=== PATIENT | male | born 1935 | race Caucasian/White ===

== ENCOUNTER → 2019-07-22 | Outpatient (CLI) | payer MEDICARE, OTHER ==
[~2019-07-22] MED LIST: BIFI4CAP PO; CILO100T PO; DOXY100T21 PO; FLAX100020 PO; FURO40TA5 PO; GARL10005 PO; MAGN100T5 PO; MELA5CAP PO; PLETAL PO; RAMI2.5C16 PO; ROSU10TA22 PO; SOTA80TA PO; TEMA30CA PO; THYR30TA PO; VITA100049 PO; [UNRECOGNIZED DRUG - CODE] PO; [UNRECOGNIZED DRUG - CODE] PO
--- NOTE | 2019-07-22 13:26 | NUR ---
MBSS COMPLETED. NON-TRANSIENT PENETRATION WITH THIN LIQUIDS (SILENT). RECOMMEND REGULAR, NECTAR-THICK LIQUIDS; PILLS WHOLE WITH LIQUIDS. RECOMMENDATIONS: 1.SKILLED SPEECH THERAPY 2-3XWK TARGETING DYSPHAGIA. *PLEASE CONSIDER NMES (NEUROMUSCULAR ELECTRICAL STIMULATION) IN TREATMENT PLAN. RECOMMENDATIONS PROVIDED VIA WRITTEN MODALITY. BACK WEDGER EXPLAINED HOW TO REACH NECTAR-THICK LIQUIDS. ALL QUESTIONS ANSWERED AT THIS TIME. Addendum: 07/22/19 at 1327 by HELLEN ALLRED, [facility] Amended: Links added.
== END | disposition home or self-care (01) ==
LOC: RAH 10:37
PROVIDERS: ATTEND Internal Medicine
DX: Z09 Encounter for follow-up examination after completed treatment for conditions other than malignant neoplasm (principal); R13.13 Dysphagia, pharyngeal phase; I10 Essential (primary) hypertension; E78.5 Hyperlipidemia, unspecified; E03.9 Hypothyroidism, unspecified; I25.10 Atherosclerotic heart disease of native coronary artery without angina pectoris; R63.4 Abnormal weight loss; R19.7 Diarrhea, unspecified; R14.3 Flatulence; Z90.09 Acquired absence of other part of head and neck; Z95.2 Presence of prosthetic heart valve; Z95.0 Presence of cardiac pacemaker
CPT/HCPCS: 74230; 92611

== ENCOUNTER 2019-08-05 05:39 | Day surgery (SDC) | payer MEDICARE, OTHER ==
[~2019-08-05] VITALS: Ht 172.7 cm; Wt 63.5 kg
[2019-08-05] VITALS (12 sets, daily range): BP systolic 92–150; BP diastolic 51–67
[~2019-08-05 05:39] MED LIST changes: -BIFI4CAP PO; -CILO100T PO; -DOXY100T21 PO; -FLAX100020 PO; -FURO40TA5 PO; -GARL10005 PO; -MAGN100T5 PO; -MELA5CAP PO; -PLETAL PO; -RAMI2.5C16 PO; -ROSU10TA22 PO; +SODIUM CHLORIDE 0.9% 1000ML 1,000 ML IV ONE; -SOTA80TA PO; -TEMA30CA PO; -THYR30TA PO; -VITA100049 PO; -[UNRECOGNIZED DRUG - CODE] PO; -[UNRECOGNIZED DRUG - CODE] PO
[2019-08-05] MEDS ORDERED: BOTULINUM TOXIN TYPE A 100 UNITS/VIAL INJ SCH (06:30)
[2019-08-05] MEDS ORDERED: FURO40TA5 PO ×2 (06:48)
[2019-08-05] MEDS ORDERED: MELA5CAP PO ×2 (06:48)
[2019-08-05] MEDS ORDERED: DOXY100T21 PO ×2 (06:48)
[2019-08-05] MEDS ORDERED: CILO100T PO ×2 (06:48)
[2019-08-05] MEDS ORDERED: THYR30TA PO ×2 (06:48)
[2019-08-05] MEDS ORDERED: [UNRECOGNIZED DRUG - CODE] PO ×2 (06:48)
[2019-08-05] MEDS ORDERED: RAMI2.5C16 PO ×2 (06:48)
[2019-08-05] MEDS ORDERED: [UNRECOGNIZED DRUG - CODE] PO ×2 (06:48)
[2019-08-05] MEDS ORDERED: PLETAL PO ×2 (06:48)
[2019-08-05] MEDS ORDERED: MAGN100T5 PO ×2 (06:48)
[2019-08-05] MEDS ORDERED: SOTA80TA PO ×2 (06:48)
[2019-08-05] MEDS ORDERED: GARL10005 PO ×2 (06:48)
[2019-08-05] MEDS ORDERED: ROSU10TA22 PO ×2 (06:48)
[2019-08-05] MEDS ORDERED: TEMA30CA PO ×2 (06:48)
[2019-08-05] MEDS ORDERED: FLAX100020 PO ×2 (06:48)
[2019-08-05] MEDS ORDERED: VITA100049 PO ×2 (06:48)
[2019-08-05] MEDS ORDERED: BIFI4CAP PO ×2 (06:49)
[2019-08-05] MEDS ORDERED: PROPOFOL 10 MG/ML 20ML VIAL IV ONE (06:58)
== END 2019-08-05 08:30 | disposition home or self-care (01) ==
LOC: ENDO 05:39 → DAH 05:39 → ENDO 08:30
PROVIDERS: ATTEND Internal Medicine
DX: R13.10 Dysphagia, unspecified (principal); K22.8 Other specified diseases of esophagus; K44.9 Diaphragmatic hernia without obstruction or gangrene; K29.50 Unspecified chronic gastritis without bleeding; E78.5 Hyperlipidemia, unspecified; E03.9 Hypothyroidism, unspecified; M19.90 Unspecified osteoarthritis, unspecified site; I25.10 Atherosclerotic heart disease of native coronary artery without angina pectoris; Z95.0 Presence of cardiac pacemaker; Z98.890 Other specified postprocedural states; Z79.899 Other long term (current) drug therapy; Z98.49 Cataract extraction status, unspecified eye; Z87.891 Personal history of nicotine dependence; Z82.49 Family history of ischemic heart disease and other diseases of the circulatory system; Z82.3 Family history of stroke
CPT/HCPCS: 43236; 43239; 43248; 88305; A4215; A4221; A4222; A4223; A4606; A4615; A4663; J0585; J2704; J7030

== ENCOUNTER 2019-11-01 09:31 | Emergency (ER) | payer MEDICARE, OTHER ==
[~2019-11-01 09:31] MED LIST changes: +BIFI4CAP PO; +CILO100T PO; +DOXY100T21 PO; +FLAX100020 PO; +FURO40TA5 PO; +GARL10005 PO; +MAGN100T5 PO; +MELA5CAP PO; +PLETAL PO; +RAMI2.5C16 PO; +ROSU10TA22 PO; -SODIUM CHLORIDE 0.9% 1000ML 1,000 ML IV ONE; +SOTA80TA PO; +TEMA30CA PO; +THYR30TA PO; +VITA100049 PO; +[UNRECOGNIZED DRUG - CODE] PO; +[UNRECOGNIZED DRUG - CODE] PO
[2019-11-01] MEDS ORDERED: TRAMADOL HCL 50 MG TABLET ONE (10:33)
[2019-11-01] MEDS ORDERED: TETANUS/DIPHTHERIA TOXOID [ADULT] 0.5 ML VIAL IM ONE (10:34)
== END 2019-11-01 12:18 | disposition home or self-care (01) ==
LOC: EDH 09:31
DX: S93.402A Sprain of unspecified ligament of left ankle, initial encounter (principal); S80.211A Abrasion, right knee, initial encounter; I25.10 Atherosclerotic heart disease of native coronary artery without angina pectoris; I25.2 Old myocardial infarction; Z95.0 Presence of cardiac pacemaker; E07.9 Disorder of thyroid, unspecified; W10.2XXA Fall (on)(from) incline, initial encounter; Y93.89 Activity, other specified; Y92.89 Other specified places as the place of occurrence of the external cause; Y99.8 Other external cause status
CPT/HCPCS: 29515; 73562; 73610; 90471; 90714

== ENCOUNTER 2020-02-16 08:18 | Emergency (ER) | payer MEDICARE ==
[2020-02-16 08:50] LABS: BASOPHILS % (AUTO) 0.8 % (0.0-5.0); EOSINOPHILS % (AUTO) 4.2 % (0.0-8.0); HEMATOCRIT 42.2 % (42-54); LYMPHOCYTES % (AUTO) 35.3 % (21.0-51.0); MEAN CORPUSCULAR HEMOGLOBIN 32.5 pg (27.0-33.0); MEAN CORPUSCULAR HGB CONC 34.1 g/dL (32.0-36.0); MEAN CORPUSCULAR VOLUME 95.3 fL (79-99); MONOCYTES % (AUTO) 11.7 % (3.0-13.0); NEUTROPHILS % (AUTO) 47.6 % (40.0-77.0); PLATELET COUNT (AUTO) 159 K/uL (130-400); RED BLOOD CELL COUNT(AUTO) 4.43 MIL/uL (4.50-6.20); RED CELL DISTRIBUTION WIDTH 15.3 % (11.0-15.5); WHITE BLOOD COUNT (AUTO) 5.3 K/uL (4.8-10.8)
[2020-02-16 09:00] LABS: BILIRUBIN,TOTAL 0.8 mg/dL (0.2-1.0); CREATININE 1.7 mg/dL (0.5-1.5)
[2020-02-16 09:01] LABS: ALBUMIN 3.4 g/dL (3.5-5.0); TOTAL PROTEIN, SERUM 6.4 g/dL (6.0-8.3)
[2020-02-16 09:13] LABS: INR 1.12 (0.85-1.15); PARTIAL THROMBOPLASTIN TIME 28.9 SEC (26.3-35.5)
[2020-02-16] MEDS ORDERED: POTASSIUM BICARB/CIT AC 25 MEQ TABLET.EFF ONE (09:14)
[2020-02-16 09:41] LABS: APPEARANCE,URINE Clear (CLEAR); BILIRUBIN,URINE Negative (NEGATIVE); COLOR,URINE Yellow (YELLOW); GLUCOSE, URINE (UA) Negative (NEGATIVE); KETONES,URINE Negative (NEGATIVE); LEUKOCYTE ESTERASE ,URINE Negative (NEGATIVE); NITRATE,URINE Negative (NEGATIVE); OCCULT BLOOD,URINE Negative (NEGATIVE); PROTEIN,URINE Negative (NEGATIVE)
[2020-02-16] MEDS ORDERED: ALBUTEROL INHALER 90MCG/INH IH ONE (11:28)
== END 2020-02-16 11:32 | disposition home or self-care (01) ==
LOC: EDH 08:18
DX: H81.4 Vertigo of central origin (principal); I25.10 Atherosclerotic heart disease of native coronary artery without angina pectoris; I25.2 Old myocardial infarction; Z87.891 Personal history of nicotine dependence
CPT/HCPCS: 36415; 71045; 80053; 81003; 82550; 83735; 84484; 85025; 85610; 85730; 93005